=== PATIENT | female | born 2005 | race Caucasian/White ===

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

== ENCOUNTER 2023-09-21 13:20 | Emergency (ER) | payer OTHER ==
[2023-09-21 13:28] VITALS: BP 95/62; PULSE 85; RESP 18; TEMP 98.5; BMI 26.2
[2023-09-21] MEDS ORDERED: IBUPROFEN 600 MG TABLET (FP) PO ONE (15:42)
[2023-09-21] MEDS: IBUPROFEN 600 MG TABLET (FP) PO ONE (15:52)
== END 2023-09-21 16:16 | disposition home or self-care (01) ==
LOC: JERFT 13:20
DX: M25.551 Pain in right hip (principal)
CPT/HCPCS: 73502-TC-RT-FY; 99283-25